=== PATIENT | male | born 1960 | race Caucasian/White ===

== ENCOUNTER 2025-09-03 09:41 | Outpatient (AMB) | payer MEDICARE, MEDICAID, SELFPAY ==
--- NOTE | 2025-09-03 09:43 | MHC.PC.OV ---
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 Rock Climbing Instructor Required: No Rock Climbing Instructor Name: Doctor speaks tamazight Accompanied by: Self / Same As Patient Allergies No Known Allergies Allergy (Verified 09/03/25 09:48) Medication List - Last Reconciled 09/03/25 by Wesley Acevedo MD atorvastatin (Lipitor) 20 mg PO DAILY difluprednate 0.05% 1 drp ophthalmic-Right BID dorzolamide 2% 1 drp ophthalmic (eye) BID doxazosin 4 mg PO DAILY empagliflozin (Jardiance) 10 mg PO DAILY insulin glargine (Lantus Solostar U-100 Insulin) 20 units subcut QPM losartan 100 mg PO DAILY sodium bicarbonate 650 mg PO DAILY PRN spironolactone 25 mg PO DAILY Tobacco use date assessed: 09/03/25 Fall risk assessment: No Falls in past year Last assessed Fall Risk: 09/03/25 Dental Screening Dental Screen Date: 09/03/25 Did you have a dental visit in the last 12 months?: No Did you have a dental problem in the last 6 months where you did not have access to dental care?: No Was dental information given to patient?: No HPI HPI Comments History of Present Illness Details History of Present Illness The patient is a 65 year old male presenting to [facility] care after recently moving from [place]. Chronic Kidney Disease: The patient is followed by a foundry patternmaker for kidney disease. In 2019, he felt unwell and went to the emergency room, where he was found to have a very high creatinine level and was hospitalized for 5 days. He takes sodium bicarbonate to protect his kidneys and spironolactone 25 mg every other day, possibly for high protein levels. Glaucoma: The patient carries a diagnosis of glaucoma and has experienced complete vision loss in his right eye. He is treated with Difluprednate, Dorzolamide, and Brimonidine eye drops. He has an upcoming appointment with his medical secretary teacher. Diabetes Mellitus: The patient has diabetes, which was noted as a possible cause of his glaucoma. He has not seen a sponge diver this year for a foot exam. Cardiovascular concerns: The patient reports he gets tired often and experiences palpitations. He has not had an echocardiogram in the past year. Sleep Disturbance: The patient reports disturbed sleep, often waking at 1:00 AM. He also reports snoring, feeling tired upon waking, and sometimes falling asleep during the day. He has never had a sleep study. Surgical History: - Cholecystectomy Medications: - Unspecified medication for urination and prostate - Unspecified medication for hypertension - Sodium bicarbonate 600 mg for kidney protection - Spironolactone 25 mg every other day, possibly for proteinuria - Difluprednate eye drops - Dorzolamide eye drops - Brimonidine eye drops Social History: - The patient recently moved from [place]. Diagnostic Results: - Past labs: Had a significantly elevated creatinine level in 2019. Past Medical History - Chronic Kidney Disease, with hospitalization in 2020 for elevated creatinine. - Hypertension - Diabetes Mellitus - Glaucoma - Vision loss in the right eye Health Maintenance - The patient is followed by a foundry patternmaker and an medical secretary teacher. - Last colonoscopy was performed at age 39. [facility] Medical History (Updated 09/03/25 @ 12:43 by Wesley Acevedo MD) Glaucoma Insomnia Sleep disturbance Heart murmur Chronic kidney disease Diabetes mellitus Surgical History (Updated 09/03/25 @ 09:56 by Vincent Casiano CMA) H/O eye surgery Hx of cholecystectomy Family History (Updated 09/03/25 @ 09:56 by Vincent Casiano CMA) Brother FH: mental illness Social History (Updated 09/03/25 @ 09:56 by Vincent Casiano CMA) Housing: House Alcohol intake: current Patient Tobacco Use Status: Never used Tobacco e-Cigarette/Vaping Use: Never Used service: No Current occupational status: retired Cognitive needs: No Hearing needs: No Vision needs: Yes Questionnaire PHQ-9 Over the last 2 weeks, how often have you been bothered by any of the following problems? 1. Little interest or pleasure in doing things: several days 2. Feeling down, depressed, or hopeless: several days 3. Trouble falling or staying asleep, or sleeping too much: several days 4. Feeling tired or having little energy: several days 5. Poor appetite or overeating: several days 6. Feeling bad about yourself - or that you are a failure or have let yourself or your family down: not at all 7. Trouble concentrating on things, such as reading the newspaper or watching television: not at all 8. Moving or speaking so slowly that other people could have noticed. Or the opposite - being so fidgety or restless that you have been moving around a lot more than usual: several days 9. Thoughts that you would be better off or of hurting yourself in some way: not at all Total score: 6 Depression Screening Interpretation: Negative Depression Screening Done: Yes 16441 - PHQ-9 Billing: Yes Source: Developed by Drs. Boom Martines, Claire Simons, Cortez Sebastian and colleagues, with an educational bennie from [employer]. Thrive Questionnaire Date Thrive assessed: 09/03/25 I am a: Patient What is your living situation today?: I have a steady place to live Within the past 12 months, did the food you bought not last and you didn't have the money to get more?: Never true Within the past 12 months, did you worry whether your food would run out before you got money to buy more?: Often true Do you have trouble paying for medicines?: Yes Do you have trouble getting transportation to medical appointments?: No Do you have trouble paying your heating and electricity bill?: Yes Do you have trouble taking care of your child, family member or friend?: No Do you have trouble with day-to-day activities such as bathing, preparing meals, shopping, managing finances, etc.?: Yes Are you currently unemployed and looking for a job?: No Are you interested in more education?: No Please select the resources that you would like help with: Food, Paying for medicine, Transportation, Utilities, Care for elder or disabled and Daily support Currently or been in a relationship where the following occur: Controlled Financially THRIVE Score: 3 AUDIT C Alcohol Use Questionnaire (AUDIT-C) 1. How often do you have a drink containing alcohol?: Monthly or less 2. How many drinks containing alcohol do you have on a typical day when you are drinking?: 1 or 2 3. How often do you have six or more drinks on one occasion?: Less than monthly Total Score: 2 AMY-7 AMB Questionnaire AMY-7 Date AMY - 7 assessed: 09/03/25 Feeling nervous, anxious, or on edge: 2 = More than half the days Not being able to stop or control worryin = More than half the days Worrying too much about different things: 2 = More than half the days Trouble relaxin = More than half the days Being so restless that it is hard to sit still: 2 = More than half the days Becoming easily annoyed or irritable: 1 = Several days Feeling afraid as if something awful might happen: 1 = Several days Total AMY-7 score (0-4 normal; 5-9 mild; 10-14 moderate; 15-21 severe): 12 Source: Developed by Drs. Boom Martines, Claire Simons, Cortez Sebastian and colleagues, with an educational bennie from [employer]. AMY-7 Assessment Billing AMY-7 Assessment Tool: AMY-7 Assessment 60772 Review of Systems Narrative Review of Systems - Constitutional: Reports fatigue. - Eyes: Reports complete vision loss in the right eye. Also reports blurry vision. - Cardiovascular: Reports palpitations. - Genitourinary: Reports taking medication for urination. - Neurological/Sleep: Reports snoring, waking up at night, daytime somnolence, and feeling tired upon awakening. 10-point ROS reviewed and negative except as noted in HPI Physical exam (Primary Care) Vital Signs: Last Vital Signs Temp 98.3 F 09/03/25 09:57 Pulse 61 09/03/25 09:57 Resp 16 09/03/25 09:57 BP 154/69 H 09/03/25 09:57 Pulse Ox 96 09/03/25 09:57 Oxygen Delivery Method Room Air 09/03/25 09:57 BMI result Body Mass Index 30.9 Tobacco/Smoking Status: Tobacco use Status Tobacco use date assessed 09/03/25 09/03/25 09:56 Patient Tobacco Use Status Never used Tobacco 09/03/25 09:56 e-Cigarette/Vaping Use Never Used 09/03/25 09:56 PHQ-9: PHQ-9 Score PHQ-9: Total score 6 09/03/25 10:35 Depression Screening Interpretation: Negative Thrive Assessment: Date of Thrive Assessment Date Thrive assessed 09/03/25 09/03/25 09:45 Currently or been in a relationship where the following occur: Controlled Financially Narrative Physical Exam General: Well-appearing, in no acute distress. Vital signs: Within normal limits. HEENT: Normocephalic, atraumatic. right eye PERRLA, EOMI. Conjunctiva clear, sclera anicteric left eye semi closed could not asess. Oropharynx clear, mucous membranes moist. TMs intact bilaterally. Neck: Supple, no lymphadenopathy, no thyromegaly, no JVD or carotid bruits. Cardiovascular: RRR, normal S1/S2, no murmurs, rubs, or gallops. Peripheral pulses 2+ and symmetric. No edema. A heart murmur is noted. Respiratory: Lungs clear to auscultation bilaterally, no wheezes, rales, or rhonchi. Normal effort. Abdomen: Soft, non-tender, non-distended. Normoactive bowel sounds. No hepatosplenomegaly, no masses. MSK: Full range of motion, no joint swelling or deformity. Normal gait. Skin: Warm, dry, intact. No rashes, lesions, or pallor. Neuro: Alert and oriented x3. Cranial nerves II-XII intact. Strength 5/5 throughout. Sensation intact. Reflexes 2+ symmetric. Normal coordination and gait. Psych: Appropriate mood and affect. Normal judgment and insight. Results AMB Hemoglobin A1c AMB Hemoglobin A1c 7.1 % Last Edit by Vincent Casiano CMA on 09/03/25 10:36 Results Reviewed Results Reviewed: Laboratory Last Values Hgb A1c (Clinic) 7.1 % (4.0-6.0) H 09/03/25 10:36 Coding Level of Care Code New Pt Level 4 (66911) Diagnoses Glaucoma H40.9 Additional Codes AMY-7 Assessment Billing - AMY-7 Assessment Tool: AMY-7 Assessment 65516 ([id number]) PHQ-9 - 44536 - PHQ-9 Billing: Yes ([id number]) Assessment & Plan Assessment & Plan (1) Glaucoma: Code(s): H40.9 - Unspecified glaucoma Category: Medical Plan Consent Patient was informed and verbally consented to the use of an ambient scribe for clinic note documentation during this visit. Plan 1. Establishment Of Care And Health Maintenance - A comprehensive lab panel was ordered, including CBC, CMP, magnesium, hemoglobin A1c, hepatitis panel, HIV, lipid panel, thyroid panel, urinalysis, vitamin B12, folate, and vitamin D. - Will attempt to obtain medical records from his previous primary care provider in [place]. - Follow-up in one to two weeks to review the results of all diagnostic tests. 2. Chronic Kidney Disease - A referral will be placed for Nephrology to continue monitoring his kidney function. 3. Diabetes Mellitus - A referral will be placed for Podiatry for an annual diabetic foot exam. 4. Heart Murmur And Palpitations - An echocardiogram will be ordered to evaluate the heart murmur. - A cardiology referral will be held until the initial workup, including labs and the echocardiogram, is complete. 5. Suspected Sleep Apnea - Given his symptoms of snoring, unrefreshing sleep, and daytime fatigue, a home sleep study will be ordered. 6. Glaucoma - The patient will continue his current treatment and follow up with his medical secretary teacher as scheduled. Discussion Notes I discussed with the patient that we will start with a comprehensive set of blood and urine tests to get a full picture of his health. I explained the need for referrals to a kidney specialist (foundry patternmaker) and a academic specialist (sponge diver) for ongoing management of his chronic conditions. I informed him that I found a heart murmur during the exam, and we will order an ultrasound of his heart (echocardiogram) to investigate it. We also discussed his sleep problems and fatigue, and I recommended a home sleep study to see if he has sleep apnea. We plan to meet again in one to two weeks to review all the results and make any necessary changes to his care plan. Patient Instructions - Please complete the blood and urine tests that were ordered. - We will send referrals for you to see a kidney specialist (foundry patternmaker) and a foot doctor (sponge diver). - We will schedule an ultrasound of your heart (echocardiogram) and a home sleep study for you. - Please ensure that your medical records from your doctor in [place] are sent to our office. - Schedule a follow-up appointment in one to two weeks to discuss your test results. Medical Decision Making The patient is a 65-year-old male with multiple complex chronic conditions who is establishing care after moving from [place]. A comprehensive baseline evaluation is required, including extensive laboratory testing, to assess the current status of his chronic kidney disease, diabetes, and other metabolic parameters. Given his history of significant renal impairment requiring hospitalization, referral to nephrology for co-management is essential. The new finding of a heart murmur on physical exam, in the context of his reported fatigue and palpitations, necessitates an echocardiogram to evaluate for underlying structural heart disease; cardiology consultation is deferred pending these results. His symptoms of snoring, unrefreshing sleep, and daytime somnolence are highly concerning for obstructive sleep apnea, which could be contributing to his fatigue and cardiovascular strain; therefore, a home sleep study is indicated. Standard of care for his diabetes includes a referral to podiatry for an annual foot examination. A close follow-up in 1-2 weeks is planned to review the comprehensive workup and adjust the management plan accordingly. Total Time Statement 30 min Total time spent caring for the patient today includes pre-visit chart review, documentation, review of laboratory and diagnostic imaging results, medication reconciliation, medically necessary evaluation, counseling on diagnoses, care coordination, ordering appropriate tests and medications, review of tests performed by other providers, reporting test results to the patient, and communication with other healthcare providers. Orders: Orders Complete Blood Count Auto Diff Today Z13.9 - Encounter for screening, unspecified Hepatitis B Surface Antigen Today Z13.9 - Encounter for screening, unspecified Comprehensive Met. Panel Today Z13.9 - Encounter for screening, unspecified Hepatitis C Antibody Today Z13.9 - Encounter for screening, unspecified TSH reflex Free T4 Today Z13.9 - Encounter for screening, unspecified HIV Ab/Ag Today Z13.9 - Encounter for screening, unspecified AMB Hemoglobin A1c Today Z13.9 - Encounter for screening, unspecified Lipid Panel Today Z13.9 - Encounter for screening, unspecified Vitamin B12 and Folate Today Z13.9 - Encounter for screening, unspecified Magnesium Today Z13.9 - Encounter for screening, unspecified Vitamin D 1,25 dihydroxy Today Z13.9 - Encounter for screening, unspecified CA echo transthoracic complete Today R01.1 - Cardiac murmur, unspecified RT home sleep study Today G47.00 - Insomnia, unspecified, G47.9 - Sleep disorder, unspecified Syphilis Screen Today Z13.9 - Encounter for screening, unspecified UA CC w/rflx Micro + Cult Today Z13.9 - Encounter for screening, unspecified Hemoglobin A1c Today Z13.9 - Encounter for screening, unspecified Hepatitis B Surface Antibody Today Z13.9 - Encounter for screening, unspecified Testosterone, Free/Total Today Z13.9 - Encounter for screening, unspecified ECG 12 lead EKG Today R01.1 - Cardiac murmur, unspecified Referrals Podiatry Referral E11.9 - Type 2 diabetes mellitus without complications Nephrology Referral N18.9 - Chronic kidney disease, unspecified
[2025-09-03 09:57] VITALS: BP 154/69; PULSE 61; RESP 16; TEMP 36.8; O2SAT 96; BMI 30.9
== END 2025-09-03 10:26 | disposition home or self-care (01) ==
LOC: HO.HMCFMS 09:42
PROVIDERS: Visit Provider Student in an Organized Health Care Education/Training Program
DX: H40.9 Unspecified glaucoma (principal)

== ENCOUNTER 2025-09-03 09:41 | Outpatient (REF) | payer MEDICARE, MEDICAID, SELFPAY ==
--- OUTSIDE RECORDS SUMMARY | 2025-09-03 12:18 | XMS_ITS | Clinical Summary ---
Author Organization [facility] Address [address] [place] [address] Phone Care Team Providers Care Sole Cutter Name Role Phone Babs Price MD Primary Care Provider [phone] Allergies No known active allergies Medications No known medications Active Problems No known active problems Surgical History Surgery Date Site/Laterality Comments EYE SURGERY 11/2018 Bilateral PROCEDURE: [place] TRABECULOPLASTY BY LASER SURGERY; COMMENT: for retinopathy Medical History Medical History Date Comments Hypertension DX:Hypertension Hypercholesterolemia DX:Hypercho lesterolemia Glaucoma DX:Glaucoma; COM MENT: [place] Retinal benefits sales consultant Diabetic retinopathy ([facility]/ C V24, [facility] V28) DX:Diabetic retinopathy ([facility] ); COMMENT: [place] Retinal benefits sales consultant Type 2 diabetes mellitus wit h renal manifestations ([facility] V24, [facility] V28) 11/10/2018 DX:Type 2 di abetes mellitus with renal manifestations (HCC) Type 2 diabetes mellitus wit h eye manifestations ([facility] V24, [facility] V28) DX:Type 2 di abetes mellitus with eye manifestations ([facility]) CKD (chronic kidney disease) stage 4, GFR 15-29 ml/min ([facility]/HCC V24, [facility] V28) 11/06/2018 DX:CKD (chroni c kidney disease) stage 4, GFR 15-29 ml/min ([facility]) Iron deficiency anemia DX:Iron d eficiency anemia History of colon polyps 01/05/2019 DX:Histo ry of colon polyps; COMMENT: Removed 2017 History of anemia due to CKD DX: History of anemia due to CKD COVID-19 virus infection 09/04/2020 DX:COVI D-19 virus infection Family History Medical History Relation Name Comments Diabetes Aunt Paternal No Known Problems Brother 1 No Known Problems Brother 2 No Known Problems Daughter Other: Diabetes, hypertension, hyperlipidemia Father No Known Problems Mother No Known Problems Sister 1 No Known Problems Sister 2 No Known Problems Sister 3 No Known Problems Son Relation Name Status Comments Aunt Paternal Alive Brother 1 Alive Brother 2 Alive Daughter Alive Father Mother Alive Sister 1 Alive Sister 2 Alive Sister 3 Alive Son Alive Social History Tobacco Use Types Packs/Day Years Used Date Smoking Tobacco: Never Smokeless Tobacco: Never Alcohol Use Standard Drinks/Week Comments No 0 (1 standard drink = 0.6 oz pur e alcohol) Sex and Gender Information Value Date Recorded Sex Assigned at Male 01/08/2025 12:34 PM EDT Legal Sex Male 8:28 AM EST Gender Identity Male 01/08/2025 12:34 PM EDT Sexual Orientation Straight 01/08/2025 12 :34 PM EDT Obstetrics History Last Filed Vital Signs Vital Sign Reading Time Taken Comments Blood Pressure 150/72 01/08/2025 11:42 AM EDT Pulse 73 01/08/2025 11:42 AM EDT Temperature 36.9 C (98.4 F) 01/08/2025 11:42 AM EDT Respiratory Rate 16 01/08/2025 11:42 AM EDT Oxygen Saturation 97% 01/08/2025 11:42 AM EDT Inhaled Oxygen Concentration - - Weight - - Height - - Body Mass Index - - Plan of Treatment Health Maintenance Due Date Last Done Comments Diabetes: Annual GFR (Glomer ular Filtration Rate) 1959 Diabetes: Annual Foot Exam 1969 Diabetes: Annual Retina Eye Exam 1969 Pneumococcal Vaccine: 50+ Ye ars (1 of 1 - PCV) 2009 RSV Immunization Adult Patie nts (1 - Risk 50-74 years 1-dose series) 2009 Zoster Vaccines (1 of 2) 2009 Cholesterol Screening (Lipid Panel) 09/02/2022 Colorectal Cancer Screening: Stool Based Tests (FOBT/FIT) 09/02/2022 Hepatitis C Screening 09/02/2022 Medicare Annual Wellness Visit 09/02/2022 Social Influencers of Health Screening 09/02/2022 Diabetes: Annual Urine Albumin-Creatinine Ratio (uACR) 09/12/2022 Diabetes: Blood Sugar Contro l Test (HGBA1C) 09/12/2022 01/20/2020 Hypertension/CHF/CAD Annual BMP Blood Test 09/12/2022 Falls Risk Assessment 02/06/2024 Depression Screening 09/30/2024 COVID-19 Vaccine (1 - 2024-2 6 season) 2025 Influenza Vaccine (#1) 2025 DTaP,Tdap,and Td Vaccines (2 - Td or Tdap) 04/16/2029 04/16/2019 HIB Vaccines Aged Out No longer eligi ble based on patient's age to complete this topic HPV Vaccines Aged Out No longer eligi ble based on patient's age to complete this topic Hepatitis A Vaccines Aged Out No long er eligible based on patient's age to complete this topic Hepatitis B Vaccines Aged Out No long er eligible based on patient's age to complete this topic IPV Vaccines Aged Out No longer eligi ble based on patient's age to complete this topic MMR Vaccines Aged Out No longer eligi ble based on patient's age to complete this topic Meningococcal ACWY Vaccine Aged Out N o longer eligible based on patient's age to complete this topic Meningococcal B Vaccine Aged Out No l onger eligible based on patient's age to complete this topic RSV Immunization Patients Un vy 20 months Aged Out No longer eligible b ased on patient's age to complete this topic Varicella Vaccines Aged Out No longer eligible based on patient's age to complete this topic Insurance MEDICARE ADVANTAGE GENERIC Care Teams Sole Cutter Relationship Specialty Start Date End Date Babs Price MD [address] [place] [address] PCP - General Internal Medicine 10/07/18
[2025-09-03 13:18] LABS: MANUAL DIFF FLAG NO
[2025-09-03 13:23] LABS: Hematocrit 36.2 % (42.0-52.0); Hemoglobin 11.5 g/dl (14.0-18.0); Imm Gran Abs Auto 0.01 X10*3/uL (0.00-0.03); Imm Gran Pct Auto 0.2 % (0.0-0.4); Lymphocytes Absolute Auto 1.2 X10*3/uL (1.2-4.9); Mean Corpuscular HGB Conc 31.8 g/dl (31.0-36.0); Mean Corpuscular Hemoglobin 31.7 pg (27.0-33.0); Mean Corpuscular Volume 99.7 fL (80.0-98.0); NRBC Abs Auto 0.000 X10*3/uL (0.0-0.012); NRBC Pct Auto 0.0 /100WBC (0.0-0.2); Platelet Count 207 X10*3/uL (160-400); Red Blood Count 3.63 X10*6/uL (4.60-5.80); White Blood Count 5.7 X10*3/uL (4.8-10.8)
[2025-09-03 13:39] LABS: Appearance Urine Clear; Glucose Urine UA >=1000 mg/dL (Negative); PH 5.5 (5.0-9.0); Specific Gravity - Urine 1.020 (1.005-1.025); UMIC TRIGGER UACC YES
[2025-09-03 14:26] LABS: Hemoglobin A1C 151.6689 umol/L
[2025-09-03 18:43] LABS: Alanine Aminotransferase 25 U/L (0-40); Albumin Level 4.4 g/dL (3.5-5.0); Alkaline Phosphatase 77 U/L (39-117); Anion Gap 13 (12-20); Aspartate Amino Transferase 25 U/L (5-37); Blood Urea Nitrogen 42 mg/dL (9-16); Calcium 9.6 mg/dL (8.4-10.2); Carbon Dioxide 26 mmol/L (22-29); Chloride 109 mmol/L (96-108); Cholesterol 144 mg/dL (<200); Estimated Glomerular Filt Rate 28; HDL Cholesterol 47 mg/dL (>40); Magnesium 2.3 mg/dL (1.6-2.6); Potassium 4.5 mmol/L (3.3-5.1); Sodium 143 mmol/L (135-145); Total Protein 7.1 g/dL (6.5-8.0); Triglycerides 94 mg/dL (<150)
[2025-09-04 00:08] LABS: Folate 9.7 ng/mL (> or = 4.0); Vitamin B12 544 pg/mL (200-900)
[2025-09-04 08:28] LABS: HBS Num1 6.06 mIU/mL (0-7.99); HBsAGNum1 0.90 S/CO (0.00-0.99); HIV Num 1 0.06 S/CO (0.00-0.99); Hepatitis B Surface Antigen Negative (Negative); ~HepC Num1 0.10 S/CO (0.00-0.79); ~Hepatitis B Surface Antibody NONREACTIVE (Nonreactive); ~Hepatitis C Antibody Nonreactive (Nonreactive)
[2025-09-04 08:31] LABS: Syphilis Screen Nonreactive (Nonreactive)
[2025-09-09 04:18] LABS: VITAMIN D (1,25 OH) D3 19 pg/mL; Vit D (1,25-Dihydroxy) Total 19 pg/mL (18-72); Vitamin D (1,25 OH) D2 <8 pg/mL
[2025-09-09 22:44] LABS: Testosterone, Free 48.5 pg/mL (35.0-155.0)
== END 2025-09-03 09:42 | disposition home or self-care (01) ==
LOC: HO.HKASLDS 09:41
PROVIDERS: PCP Student in an Organized Health Care Education/Training Program; Visit Provider Student in an Organized Health Care Education/Training Program
DX: Z76.89 Persons encountering health services in other specified circumstances (principal); I10 Essential (primary) hypertension; Z13.31 Encounter for screening for depression; Z13.39 Encounter for screening examination for other mental health and behavioral disorders; N18.30 Chronic kidney disease, stage 3 unspecified; E11.9 Type 2 diabetes mellitus without complications; R06.83 Snoring; R00.2 Palpitations; R01.1 Cardiac murmur, unspecified; G47.00 Insomnia, unspecified
CPT/HCPCS: 36415; 80053; 80061; 81001; 81003; 82607; 82652; 82746; 83036; 83735; 84402; 84403; 84443; 85025; 86706; 86780; 86803; 87340; 87389; 96127; 99202

== ENCOUNTER 2025-09-24 09:28 | Outpatient (AMB) | payer MEDICARE, MEDICAID, SELFPAY ==
--- OUTSIDE RECORDS SUMMARY | 2025-09-24 09:31 | XMS_ITS | Clinical Summary ---
Author Organization [facility] Address [address] [place] [address] Phone Care Team Providers Care Pile Header Name Role Phone Babs Price MD Primary Care Provider [phone] Allergies No known active allergies Medications No known medications Active Problems No known active problems Surgical History Surgery Date Site/Laterality Comments EYE SURGERY 11/2018 Bilateral PROCEDURE: [place] TRABECULOPLASTY BY LASER SURGERY; COMMENT: for retinopathy Medical History Medical History Date Comments Hypertension DX:Hypertension Hypercholesterolemia DX:Hypercho lesterolemia Glaucoma DX:Glaucoma; COM MENT: [place] Retinal it security consultant Diabetic retinopathy ([facility]/ C V24, [facility] V28) DX:Diabetic retinopathy ([facility] ); COMMENT: [place] Retinal it security consultant Type 2 diabetes mellitus wit h renal manifestations ([facility] V24, [facility] V28) 11/10/2018 DX:Type 2 di abetes mellitus with renal manifestations (HCC) Type 2 diabetes mellitus wit h eye manifestations ([facility] V24, [facility] V28) DX:Type 2 di abetes mellitus with eye manifestations ([facility]) CKD (chronic kidney disease) stage 4, GFR 15-29 ml/min ([facility]/HCC V24, [facility] V28) 11/06/2018 DX:CKD (chroni c kidney disease) stage 4, GFR 15-29 ml/min ([facility]) Iron deficiency anemia DX:Iron d eficiency anemia [...] Orientation Straight 01/08/2025 12 :34 PM EDT Last Filed Vital Signs Vital Sign Reading [...] topic Insurance MEDICARE ADVANTAGE GENERIC Care Teams Pile Header Relationship Specialty Start Date End Date Babs Price MD NPI: [id number] [place] [id number] PCP - General Internal Medicine 10/07/18
--- OUTSIDE RECORDS SUMMARY | 2025-09-24 09:31 | XMS_ITS | Clinical Summary ---
Author Organization [facility] Facility Address [address] [place] [id number] Care Team Providers Care Coke Oven Patcher Name Role Phone Babs Price Primary Care Provider [phone] Medications furosemide (LASIX) 40 MG tablet Take 40 mg by mouth every morning 1 Active acetaminophen (TYLENOL) 325 MG tablet Take 2 tablets by mouth 4 (four) times a day Active amLODIPine (NORVASC) 10 MG tablet Take 1 tablet by mouth 1 (one) time each day Active aspirin (Sukh Aspirin EC Low Dose) 81 MG EC tablet Take 1 tablet by mouth 1 (one) time each day Active atorvastatin (LIPITOR) 40 MG tablet Take 1 tablet by mouth 1 (one) time each day Active brimonidine (ALPHAGAN) 0.2 % ophthalmic solution ECHAR TIFFANI GOTA A AMBOS OJOS DOS VECES AL HAYDER 1 Active brimonidine (Alphagan P) 0.1 % solution Administer 1 drop into both eyes 2 (two) times a day Active dorzolamide-timol ol (COSOPT) 22.3-6.8 MG/ML ophthalmic solution ECHAR TIFFANI GOTA A AMBOS OJOS DOS VECES AL HAYDER 1 Active gabapentin (NEURONTIN) 100 MG capsule Take 100 mg by mouth 2 (two) times a day 1 Active insulin glargine (Lantus SoloStar) 100 UNIT/ML injection Inject 20 Units under the skin at bed time Active latanoprost (XALATAN) 0.005 % ophthalmic solution ECHAR TIFFANI GOTA A AMBOS OJOS DIARIAMENTE A LA HORA DE ACOSTARSE EN LA NOCHE 1 Active losartan (COZAAR) 100 MG tablet TOME TIFFANI TABLETA DIARIAMENTE 1 Active Nutritional Supplements (Glucerna Snack Shake) liquid USO ELLIOTT INDICADO EN EL EMPAQUE 1 Active Sodium Zirconium Cyclosilicate (Lokelma) 10 g pack Take 1 packet by mouth 1 (one) time each day 0 Active atorvastatin (LIPITOR) 20 MG tablet Take 20 mg by mouth 1 (one) time each day in the evening 1 Active dorzolamide (TRUSOPT) 2 % ophthalmic solution INSTILL 1 DROP IN BOTH EYES TWICE DAILY 1 Active Jardiance 10 MG tablet TAKE 1 TABLET BY MOUTH DAILY EVERY MORNING 1 Active prednisoLONE acetate (PRED FORTE) 1 % ophthalmic suspension SHAKE LIQUID AND INSTILL 1 DROP IN RIGHT EYE FOUR TIMES DAILY 1 Active diclofenac (CATAFLAM) 50 MG tablet TAKE 1 TABLET BY MOUTH TWICE DAILY NEEDED 1 Active B-D ULTRAFINE III SHORT PEN 31G X 8 MM misc USE TO INJECT INSULIN EVERY DAY 1 Active sildenafil (VIAGRA) 100 MG tablet TOME 1 TABLETA DIARIAMENTE 1 Active tadalafil (CIALIS) 20 MG tablet LISA TIFFANI TABLETA ANTES DE LA ACTIVIDAD. NO MAS DE TIFFANI DIARIA. 1 Active tamsulosin (FLOMAX) 0.4 MG 24 hr capsule TOME TIFFANI CAPSULA A LA HORA DE ACOSTARSE EN LA NOCHE 1 Active Lantus 100 UNIT/ML injection INYECTAR 20 UNIDADES UNIDADES SUBCUTANEAS DIARIAMENTE A LA HORA DE ACOSTARSE 1 Active Active Problems Problem Noted Date Diagnosed Date Acute nontraumatic kidney injury 05/05/2021 Anemia of chronic renal failure 05/05/2021 Chronic kidney disease stage 3 05/05/2021 Essential hypertension 05/05/2021 Hypertensive renal disease 05/05/2021 Type 2 diabetes mellitus 05/05/2021 Family History Medical History Relation Comments Diabetes Father Heart disease Father Hypertension Father Stroke Father Relation Status Comments Father Mother Alive Social History Tobacco Use Types Packs/Day Years Used Date Smoking Tobacco: Never Alcohol Use Standard Drinks/Week Comments No 0 (1 standard drink = 0.6 oz pur e alcohol) Sex and Gender Information Value Date Recorded Sex Assigned at Not on file Legal Sex Male 4:53 PM EST Gender Identity Not on file Sexual Orientation Not on file Last Filed Vital Signs Vital Sign Reading Time Taken Comments Blood Pressure 130/78 11/01/2020 12:00 PM EST Pulse 77 11/01/2020 12:00 PM EST Temperature - - Respiratory Rate - - Oxygen Saturation 99% 10/27/2020 12:00 PM EST Inhaled Oxygen Concentration - - Weight 85.7 kg (189 lb) 11/01/2020 12:00 PM EST Height 172.7 cm (5' 8 ) 11/01/2020 12:00 PM EST Body Mass Index 28.74 11/01/2020 12:00 PM EST Plan of Treatment Health Maintenance Due Date Last Done Comments Pneumococcal Vaccine: 50+ Ye ars (1 of 2 - PCV) 1979 Colorectal Cancer Screening: Annual FOBT 02/06/2008 Colorectal Cancer Screening: Colonoscopy 02/06/2008 Colorectal Cancer Screening: Sigmoidoscopy 02/06/2008 Diabetes: Hemoglobin A1C 10/30/2020 01/20/2020 Diabetes: Ophthalmology Exam 10/30/2020 Diabetes: Pedal Pulse Checked 10/30/2020 Diabetes: Sensory Foot Exam 10/30/2020 Diabetes: Visual Foot Exam 10/30/2020 Influenza Vaccine (#1) 2025 08/30/2019 Hepatitis B Vaccine Aged Out No longe r eligible based on patient's age to complete this topic Procedures Procedure Name Priority Date/Time Associated Diagnosis Comments HEMOGLOBIN A1C Routine 01/20/2020 9:59 AM EDT from Last 3 Months or Most Recently Relevant to Health Maintenance Results * Hemoglobin A1c (01/20/2020 9:59 AM EDT) Hemoglobin A1C 5.5 (4.0-5.6) % [facility] 3 Comment: MONITORING: In known diabetic patients, hemoglobin A1c targets should be discussed with health care provider. DIAGNOSTIC USE: The [place] [employer] (ADA) and the World Health Organization (WHO) recommend the use of HbA1c to diagnose diabetes using a threshold of 6.5%. Patients who have an HbA1c between 5.7% and 6.4% are considered at increased risk for developing diabetes in the future. CAUTION: Falsely low HbA1c results may be observed in patients with hemolytic anemia, homozygous forms of abnormal hemoglobin (e.g. SS, CC, SC), , recent blood loss or hemoglobin F greater than 7%. Fructosamine may be used as an alternate test in these cases. REFERENCE: ADA: Standards of Medical Care in Diabetes 2020, The Journal of Clinical and Applied Research and Education Volume 43, Supplement 1 Testing performed or reported by ~[facility], ~a Service of [facility], ~[address] [place] [id number]~ Soledad Serrano MD, Special Education Teaching Assistant~ 01/20/2020 9:59 AM EDT Mandeep Scott MD LAB BLOOD ORDERABLES Final Re sult [facility] 3 from Last 3 Months or Most Recently Relevant to Health Maintenance [place] [address] Care Teams Coke Oven Patcher Relationship Specialty Start Date End Date Albert [address] [place] [id number] PCP - General 10/10/20
--- NOTE | 2025-09-24 09:32 | A.OFFPC_ITS ---
Vital Signs 09/24/25 09:39 Height 5 ft 8 in Weight 201 lb 4 oz BMI 30.6 BP 143/60 H Blood Pressure Location Lt brachial Position Sitting Respiration 17 Pulse 70 Pulse Source Pulse Oximeter Temp 98.5 F Temp Source Oral Pulse Oximetry (%) 97 Oxygen Delivery Method Room Air Intake Visit Reasons: follow up - lab review Intake Note: Patient present for lab review. Millwright Helper Required: No Millwright Helper Name: Doctor speaks greenlandic Accompanied by: Self / Same As Patient Allergies No Known Allergies Allergy (Verified 09/24/25 09:36) Medication List - Last Reconciled 09/24/25 by Wesley Acevedo MD atorvastatin (Lipitor) 40 mg PO BEDTIME difluprednate 0.05% 1 drp ophthalmic-Right BID dorzolamide 2% 1 drp ophthalmic (eye) BID doxazosin 4 mg PO DAILY empagliflozin (Jardiance) 10 mg PO DAILY insulin glargine (Lantus Solostar U-100 Insulin) 20 units subcut QPM losartan 100 mg PO DAILY methazolamide 50 mg PO TID sodium bicarbonate 650 mg PO DAILY PRN spironolactone 25 mg PO DAILY Tobacco use date assessed: 09/03/25 Fall risk assessment: No Falls in past year Last assessed Fall Risk: 09/24/25 Dental Screening Dental Screen Date: 09/03/25 HPI HPI Comments History of Present Illness Details History of Present Illness The patient is a 65 year old male presenting for review of lab results and management of multiple chronic medical conditions. Type 2 diabetes mellitus: The patient has a history of type 2 diabetes and is currently being treated with Jardiance, which he takes in the morning, and 20 units of insulin at night. Chronic kidney disease: The patient has a history of chronic kidney disease, which was previously stage 3 and has now progressed to stage 4. His kidney disease is the cause of his anemia. The patient has an upcoming appointment with a passenger service manager and ingredient scaler helper. He reports taking Tylenol for pain and avoids NSAIDs. Anemia: The patient has anemia secondary to chronic kidney disease, characterized by low red blood cells, hemoglobin, and hematocrit. He has a history of receiving monthly injections, administered by a nurse under the direction of his passenger service manager, to stimulate red blood cell production. Essential hypertension: The patient has a history of hypertension and takes losartan 100 mg, spironolactone 25 mg, and doxazosin 4 mg. Hyperlipidemia: The patient has a history of high cholesterol treated with atorvastatin 20 mg at night. Benign prostatic hyperplasia: The patient's records indicate a diagnosis of benign prostatic hyperplasia, though he was not aware of this. His medication regimen includes doxazosin, which is used for this condition, although he believed it was for pedal edema. He denies symptoms such as difficulty urinating or a weak urinary stream. Gastroesophageal reflux disease: The patient reports he has gastroesophageal reflux disease and experiences severe heartburn daily, which is sometimes relieved by drinking lemon tea. Obstructive sleep apnea: The patient has a prior diagnosis of obstructive sleep apnea and has an appointment for a sleep study on the . Coronary artery disease: The patient has a history of coronary artery disease and has a cardiac study scheduled for November 23. Glaucoma: The patient has glaucoma, for which his dairy equipment specialist prescribed methazolamide to be taken three times a day to manage his eye pressure. Surgical History: - Cholecystectomy Medications: - Atorvastatin 20 mg at night for hyperl ipidemia - Doxazosin 4 mg for benign prostatic hy perplasia - Jardiance in the morning for type 2 di abetes - Insulin 20 units at night for type 2 d iabetes - Losartan 100 mg for hypertension - Methazolamide three times a day for gl aucoma - Spironolactone 25 mg for hypertension Social History: - No social history was discussed. Family History: - No family history was discussed. Diagnostic Results: - Hemoglobin A1c: 6.9% - Hematology: Low red blood cells, hemog lobin, and hematocrit, consistent with anemia. - Lipid panel: LDL cholesterol is 79 mg/ dL; triglycerides are normal. - Comprehensive metabolic panel: Calcium , magnesium, and liver function are normal. - Kidney function: Findings are consiste nt with stage 4 chronic kidney disease. - Urinalysis: Positive for proteinuria. - Other labs: Vitamin D, thyroid functio n, folate, and testosterone levels are normal. - Infectious disease serologies: Negativ e for syphilis, hepatitis B, hepatitis C, and HIV. Past Medical History - Type 2 diabetes mellitus - Hypertension - Hyperlipidemia - Chronic kidney disease, stage 4 (progr essed from stage 3) - Benign prostatic hyperplasia - Coronary artery disease - Gastroesophageal reflux disease with d aily heartburn - Obstructive sleep apnea - Anemia of chronic kidney disease - Glaucoma Health Maintenance - Administer the first dose of the hepat itis B vaccine series today. - The patient will need to return in one month for the second dose and in six months from today for the third and final dose. - Administer the pneumonia vaccine today . - The patient to continue with his sched uled follow-up appointments with cardiology, podiatry, and for his sleep study. [facility] Medical History BPH w urinary obs/LUTS Glaucoma Insomnia Sleep disturbance Heart murmur Chronic kidney disease Diabetes mellitus Surgical History History of carpal tunnel release History of sleeve gastrectomy History of right inguinal hernia repair History of total right knee replacement History of coronary artery bypass graft H/O eye surgery Hx of cholecystectomy Family History Brother FH: mental illness Social History (Updated 09/24/25 @ 09:39 by Vincent Casiano CMA) Housing: House Alcohol intake: current Patient Tobacco Use Status: Never used Tobacco e-Cigarette/Vaping Use: Never Used service: No Current occupational status: retired Cognitive needs: No Hearing needs: No Vision needs: Yes Questionnaire PHQ-9 Over the last 2 weeks, how often have you been bothered by any of the following problems? 1. Little interest or pleasure in doing things: several days 2. Feeling down, depressed, or hopeless: several days 3. Trouble falling or staying asleep, or sleeping too much: several days 4. Feeling tired or having little energy: several days 5. Poor appetite or overeating: several days 6. Feeling bad about yourself - or that you are a failure or have let yourself or your family down: not at all 7. Trouble concentrating on things, such as reading the newspaper or watching television: not at all 8. Moving or speaking so slowly that other people could have noticed. Or the opposite - being so fidgety or restless that you have been moving around a lot more than usual: several days 9. Thoughts that you would be better off or of hurting yourself in some way: not at all Total score: 6 Depression Screening Interpretation: Negative Depression Screening Done: Yes [id number] - PHQ-9 Billing: Yes Source: Developed by Drs. Boom Martines, Claire Simons, Cortez Sebastian and colleagues, with an educational bennie from [employer]. Thrive Questionnaire Date Thrive assessed: 09/03/25 I am a: Patient What is your living situation today?: I have a steady place to live Within the past 12 months, did the food you bought not last and you didn't have the money to get more?: Never true Within the past 12 months, did you worry whether your food would run out before you got money to buy more?: Often true Do you have trouble paying for medicines?: Yes Do you have trouble getting transportation to medical appointments?: No Do you have trouble paying your heating and electricity bill?: Yes Do you have trouble taking care of your child, family member or friend?: No Do you have trouble with day-to-day activities such as bathing, preparing meals, shopping, managing finances, etc.?: Yes Are you currently unemployed and looking for a job?: No Are you interested in more education?: No Currently or been in a relationship where the following occur: Controlled Financially THRIVE Score: 3 AUDIT C Alcohol Use Questionnaire (AUDIT-C) 1. How often do you have a drink containing alcohol?: Monthly or less 2. How many drinks containing alcohol do you have on a typical day when you are drinking?: 1 or 2 3. How often do you have six or more drinks on one occasion?: Less than monthly Total Score: 2 AMY-7 AMB Questionnaire AMY-7 Date AMY - 7 assessed: 09/03/25 Feeling nervous, anxious, or on edge: 2 = More than half the days Not being able to stop or control worryin = More than half the days Worrying too much about different things: 2 = More than half the days Trouble relaxin = More than half the days Being so restless that it is hard to sit still: 2 = More than half the days Becoming easily annoyed or irritable: 1 = Several days Feeling afraid as if something awful might happen: 1 = Several days Total AMY-7 score (0-4 normal; 5-9 mild; 10-14 moderate; 15-21 severe): 12 Source: Developed by Drs. Boom Martines, ClaireCortez Salter and colleagues, with an educational bennie from [employer]. AMY-7 Assessment Billing AMY-7 Assessment Tool: AMY-7 Assessment 55662 Review of Systems Narrative Review of Systems - Gastrointestinal: Reports severe daily heartburn, worse at night. - Genitourinary: Denies difficulty urinating or a weak urinary stream. 10-point ROS reviewed and negative except as noted in HPI Physical exam (Primary Care) Vital Signs: Last Vital Signs Temp 98.5 F 09/24/25 09:39 Pulse 70 09/24/25 09:39 Resp 17 09/24/25 09:39 BP 143/60 H 09/24/25 09:39 Pulse Ox 97 09/24/25 09:39 Oxygen Delivery Method Room Air 09/24/25 09:39 BMI result Body Mass Index 30.6 Tobacco/Smoking Status: Tobacco use Status Tobacco use date assessed 09/03/25 09/24/25 09:33 Patient Tobacco Use Status Never used Tobacco 09/24/25 09:39 e-Cigarette/Vaping Use Never Used 09/24/25 09:39 PHQ-9: PHQ-9 Score PHQ-9: Total score 6 09/24/25 10:15 Depression Screening Interpretation: Negative Thrive Assessment: Date of Thrive Assessment Date Thrive assessed 09/03/25 09/24/25 09:33 Currently or been in a relationship where the following occur: Controlled Financially Narrative Physical Exam General: Well-appearing, in no acute distress. Vital signs: Within normal limits. HEENT: Normocephalic, atraumatic. PERRLA, EOMI. Conjunctiva clear, sclera anicteric. Oropharynx clear, mucous membranes moist. TMs intact bilaterally. Neck: Supple, no lymphadenopathy, no thyromegaly, no JVD or carotid bruits. Cardiovascular: RRR, normal S1/S2, no murmurs, rubs, or gallops. Peripheral pulses 2+ and symmetric. No edema. Respiratory: Lungs clear to auscultation bilaterally, no wheezes, rales, or rhonchi. Normal effort. Abdomen: Soft, non-tender, non-distended. Normoactive bowel sounds. No hepatosplenomegaly, no masses. MSK: Full range of motion, no joint swelling or deformity. Normal gait. Skin: Warm, dry, intact. No rashes, lesions, or pallor. Neuro: Alert and oriented x3. Cranial nerves II-XII intact. Strength 5/5 throughout. Sensation intact. Reflexes 2+ symmetric. Normal coordination and gait. Psych: Appropriate mood and affect. Normal judgment and insight. Immunizations Engerix-B (PF) 20 mcg/mL intramuscular syringe Performing Provider: Wesley Acevedo MD Performing Location: [facility] Administered by: Vincent Casiano CMA on 09/24/25 10:21 Dose Route Admin Location Dispensed Lot Number Expiration Date [facility] Manager Of Pharmacy 1 mL IM Right Deltoid 1 mL [id number] 10/15/27 10869-692-34 [employer] Total Dispensed Waste 1 mL 0 % VIS Given Date VIS Provided VIS Publication Date 09/24/25 Single Vaccine 23 Eligibility Eligibility Date Funding Source [facility]Medicaid 09/24/25 Private pneumoc 20-vi conj-dip cr(PF) 0.5 mL IM syringe Performing Provider: Wesley Acevedo MD Performing Location: [facility] Administered by: Vincent Casiano CMA on 09/24/25 10:18 Dose Route Admin Location Dispensed Lot Number Expiration Date [place] Manager Of Pharmacy 0.5 mL IM Left Deltoid 0.5 mL [id number] 06/29/26 [employer] Total Dispensed Waste 0.5 mL 0 % VIS Given Date VIS Provided VIS Publication Date 09/24/25 Single Vaccine 25 Eligibility Eligibility Date Funding Source [facility]-Medicaid 09/24/25 Private Coding Level of Care Code Est Pt Level 3 (61914) Add On Problem Visit Only Diagnoses Type 2 diabetes mellitus with chronic kidney disease E11.22 Chronic kidney disease, stage 4 (severe) N18.4 Anemia, chronic disease D63.8 Hypertension I10 Hyperlipidemia E78.5 BPH (benign prostatic hyperplasia) N40.0 GERD (gastroesophageal reflux disease) K21.9 CAD (coronary artery disease) I25.10 Glaucoma H40.9 BUCK (obstructive sleep apnea) G47.33 Low hemoglobin and low hematocrit D64.9 Elevated MCV R71.8 Azotemia R79.89 Proteinuria due to type 2 diabetes mellitus E11.29; R80.9 Glucosuria R81 Additional Codes AMY-7 Assessment Billing - AMY-7 Assessment Tool: AMY-7 Assessment 06313 ([id number]) PHQ-9 - 82842 - PHQ-9 Billing: Yes ([id number]) Assessment & Plan Assessment & Plan (1) Type 2 diabetes mellitus with chronic kidney disease: Code(s): E11.22 - Type 2 diabetes mellitus with diabetic chronic kidney disease Category: Medical (2) Chronic kidney disease, stage 4 (severe): Code(s): N18.4 - Chronic kidney disease, stage 4 (severe) Category: Medical (3) Anemia, chronic disease: Code(s): D63.8 - Anemia in other chronic diseases classified elsewhere Category: Medical (4) Hypertension: Code(s): I10 - Essential (primary) hypertension Category: Medical (5) Hyperlipidemia: Code(s): E78.5 - Hyperlipidemia, unspecified Category: Medical (6) BPH (benign prostatic hyperplasia): Code(s): N40.0 - Benign prostatic hyperplasia without lower urinary tract symptoms Category: Medical (7) GERD (gastroesophageal reflux disease): Code(s): K21.9 - Gastro-esophageal reflux disease without esophagitis Category: Medical (8) CAD (coronary artery disease): Code(s): I25.10 - Atherosclerotic heart disease of tribal coronary artery without angina pectoris Category: Medical (9) Glaucoma: Code(s): H40.9 - Unspecified glaucoma Category: Medical (10) BUCK (obstructive sleep apnea): Code(s): G47.33 - Obstructive sleep apnea (adult) (pediatric) Category: Medical (11) Low hemoglobin and low hematocrit: Code(s): D64.9 - Anemia, unspecified Category: Medical (12) Elevated MCV: Code(s): R71.8 - Other abnormality of red blood cells Category: Medical (13) Azotemia: Code(s): R79.89 - Other specified abnormal findings of blood chemistry Category: Medical (14) Proteinuria due to type 2 diabetes mellitus: Code(s): E11.29 - Type 2 diabetes mellitus with other diabetic kidney complication; R80.9 - Proteinuria, unspecified Category: Medical (15) Glucosuria: Code(s): R81 - Glycosuria Category: Medical Plan Consent The risks, benefits, and alternatives of the Hepatitis B and pneumonia vaccines were discussed with the patient. Benefits discussed included increased protection against these viruses, which is particularly important given his diabetes and chronic kidney disease that lower his defenses. Potential risks reviewed included mild and temporary side effects, such as feeling tired or flu- like symptoms for a few days. The patient verbalized understanding and provided consent to receive both vaccinations. Patient was informed and verbally consented to the use of an ambient scribe for clinic note documentation during this visit. Plan 1. Chronic Kidney Disease, Stage 4 - The patient's kidney disease has progressed to stage 4. - He will follow up with his passenger service manager for continued management of his CKD, as well as the associated proteinuria and anemia. - Counseled to continue avoiding NSAIDs such as ibuprofen and Motrin. 2. Type 2 Diabetes Mellitus - The patient's hemoglobin A1c is 6.9%. - For now, no changes will be made to his current regimen of Jardiance and insulin. - Plan to repeat the hemoglobin A1c in three months to assess control before considering adjustments. 3. Hyperlipidemia - The patient's LDL cholesterol is 79 mg/dL, which is above the goal of less than 70 mg/dL. - Plan to increase atorvastatin from 20 mg to 40 mg daily. - Instructed the patient that he can take two of his 20 mg tablets to achieve the 40 mg dose until the new prescription is filled. Discussion Notes I reviewed the lab results with the patient. I explained that his chronic kidney disease has worsened, progressing from stage 3 to stage 4, and that the associated anemia is due to the kidneys' decreased ability to produce a hormone that stimulates red blood cell production. We discussed that his hemoglobin A1c is elevated at 6.9%, but we will maintain his current diabetes regimen and recheck labs in three months before making any changes. I informed him that his LDL cholesterol is 79 mg/dL, which is above the goal of <70 mg/dL, and therefore I am increasing his atorvastatin dose to 40 mg. I advised him to continue avoiding NSAID pain relievers like ibuprofen due to his kidney condition. I recommended the hepatitis B vaccine series and the pneumonia vaccine, explaining the increased importance of protection due to his immunocompromised state from diabetes and kidney disease. I reviewed the risks, benefits, and alternatives, noting that potential side effects are mild and may include feeling tired or flu-like for a couple of days. The patient understood and consented to receiving both vaccines today. I advised him to follow up with his specialists as scheduled. Patient Instructions - Stop taking your Atorvastatin 20 mg tablets. - Start taking Atorvastatin 40 mg once daily for your cholesterol. - Until you get the new prescription, you can take two of your 20 mg tablets together to make the 40 mg dose. - Continue taking all your other medications as prescribed, including Jardiance, insulin, Losartan, and others. - Do not take pain medicines like Ibuprofen (Advil, Motrin) or Naproxen (Aleve), as they can be harmful to your kidneys. - You can take Tylenol if you need something for pain. - You will receive the Hepatitis B and pneumonia vaccines today. - You must return in one month for your second Hepatitis B shot, and then again in six months from today for your final shot. - It is important that you keep your upcoming appointments with the kidney specialist (passenger service manager), foot doctor (ingredient scaler helper), heart doctor (photo checker and assembler), and for your sleep study. Medical Decision Making The patient is a 65-year-old male with a complex medical history including type 2 diabetes, hypertension, hyperlipidemia, and coronary artery disease, who presented for a review of recent lab work. Labs revealed progression of his chronic kidney disease from stage 3 to stage 4, which is a significant change. Given this progression and the associated anemia and proteinuria, management of his renal condition is best handled by his passenger service manager, with whom he has an upcoming appointment. The patient was counseled on the importance of avoiding nephrotoxic agents like NSAIDs. His hemoglobin A1c of 6.9% is above goal, but as this is a new visit to establish care, I have elected to continue his current diabetes regimen and will reassess control in three months before making adjustments. His LDL of 79 mg/dL is not at the recommended goal of <70 mg/dL for a patient with his comorbidities; therefore, his atorvastatin was increased to 40 mg daily to optimize his cardiovascular risk reduction. Given his immunocompromised state due to diabetes and CKD, and his lack of immunity to Hepatitis B, preventative care was prioritized. He was advised and consented to receive the Hepatitis B vaccine series and the pneumonia vaccine to reduce his risk of infection. He has appropriate specialist follow-ups in place for his other chronic issues, which he was encouraged to attend. Total Time Statement 20 min Total time spent caring for the patient today includes pre-visit chart review, documentation, review of laboratory and diagnostic imaging results, medication reconciliation, medically necessary evaluation, counseling on diagnoses, care coordination, ordering appropriate tests and medications, review of tests performed by other providers, reporting test results to the patient, and communication with other healthcare providers. Orders: Orders US retroperitoneal limited Today E11.22 - Type 2 diabetes mellitus with diabetic chronic kidney disease, N18.4 - Chronic kidney disease, stage 4 (severe) Pneumococcal 20 Immunization Today Z23 - Encounter for immunization Hepatitis B Adult Immunization Today Z23 - Encounter for immunization Medications: New atorvastatin (Lipitor) 40 mg PO BEDTIME 90 tabs 0RF
[2025-09-24 09:39] VITALS: BP 143/60; PULSE 70; RESP 17; TEMP 36.9; O2SAT 97; BMI 30.6
== END 2025-09-24 10:15 | disposition home or self-care (01) ==
LOC: HO.HMCFMS 09:29
PROVIDERS: PCP Student in an Organized Health Care Education/Training Program; Visit Provider Student in an Organized Health Care Education/Training Program
DX: E11.22 Type 2 diabetes mellitus with diabetic chronic kidney disease (principal); N18.4 Chronic kidney disease, stage 4 (severe); D63.8 Anemia in other chronic diseases classified elsewhere; I12.9 Hypertensive chronic kidney disease with stage 1 through stage 4 chronic kidney disease, or unspecified chronic kidney disease; E78.5 Hyperlipidemia, unspecified; N40.0 Benign prostatic hyperplasia without lower urinary tract symptoms; K21.9 Gastro-esophageal reflux disease without esophagitis; I25.10 Atherosclerotic heart disease of native coronary artery without angina pectoris; H40.9 Unspecified glaucoma; G47.33 Obstructive sleep apnea (adult) (pediatric); D64.9 Anemia, unspecified; R71.8 Other abnormality of red blood cells; R79.89 Other specified abnormal findings of blood chemistry; E11.29 Type 2 diabetes mellitus with other diabetic kidney complication; R80.9 Proteinuria, unspecified; R81 Glycosuria; Z23 Encounter for immunization

== ENCOUNTER → 2025-09-24 09:28 | Outpatient (BNVA) | payer MEDICARE, MEDICAID, SELFPAY | PROVIDERS: Visit Provider Student in an Organized Health Care Education/Training Program | DX: Z71.2 Person consulting for explanation of examination or test findings (principal); E11.22 Type 2 diabetes mellitus with diabetic chronic kidney disease; R80.9 Proteinuria, unspecified; Z23 Encounter for immunization; Z13.31 Encounter for screening for depression; Z13.39 Encounter for screening examination for other mental health and behavioral disorders; N18.4 Chronic kidney disease, stage 4 (severe); D63.8 Anemia in other chronic diseases classified elsewhere; K21.9 Gastro-esophageal reflux disease without esophagitis; N40.0 Benign prostatic hyperplasia without lower urinary tract symptoms; I25.10 Atherosclerotic heart disease of native coronary artery without angina pectoris; G47.33 Obstructive sleep apnea (adult) (pediatric); H40.9 Unspecified glaucoma; D64.9 Anemia, unspecified; R79.89 Other specified abnormal findings of blood chemistry; R81 Glycosuria; Z79.899 Other long term (current) drug therapy | CPT/HCPCS: 90471; 90677; 90746; 96127; 99212 ==